=== PATIENT | male | born 1970 | race Caucasian/White ===

== ENCOUNTER 2023-04-13 00:21 | Emergency (ER) | payer BC, SELFPAY ==
[2023-04-13 00:41] VITALS: BP 141/84; PULSE 94; RESP 16; TEMP 36.9; O2SAT 97; BMI 28.0
--- NOTE | 2023-04-13 01:04 | PC.NURSE ---
Patient complaining of not being able to hear out of his right ear. Patient states that a on Monday after his shower he was cleaning his ear with a q-tip and he felt the wax get pushed back and lock up his ear like a bank vault. Patient states that since Monday he has felt as if his head is in a fish bowl. Upon inspection a wall of ear wax was noted within his ear.
--- NOTE | 2023-04-13 01:52 | ED_ITS ---
HPI - General Adult General Chief complaint: Ear Problems Stated complaint: ear clogged for a few days Time Seen by Provider: 04/13/23 01:15 Source: patient, RN notes reviewed and old records reviewed Mode of arrival: ambulatory Limitations: no limitations History of Present Illness HPI narrative: 52-year-old male presents for evaluation of right ear pain. Patient reports that on Monday he was trying to clean out his ear with a Q-tip He reports that as soon as he inserted a Q-tip into his right ear ?I felt the earwax get pushed back in there. ? He reports decreased hearing and some mild discomfort in the right ear ever since He has tried using Visine eyedrops to help soften it without any improvement No other complaints or concerns at this time Related Data Allergies Allergy/AdvReac Type Severity Reaction Status Date / Time No Known Allergies Allergy Verified 04/13/23 00:47 Review of Systems Constitutional: Constitutional: Denies headache(s) ENT: Reports otalgia and Denies headache(s) Neurologic: Denies headache(s) Physical Exam ED Vital Signs: Vital Signs - 24 hr 04/13/23 00:41 Temperature 98.5 F Pulse Rate 94 Respiratory Rate 16 Blood Pressure 141/84 H Pulse Oximetry 97 Oxygen Delivery Method Room Air BMI result Body Mass Index 28.0 HENMT Other: Cerumen impaction of the right external ear canal obscuring the right tympanic membrane completely Ears: external ears normal and TM normal on the left Medical Decision Making Medical Decision Making [facility] Narrative: Patient had an obvious right cerumen impaction. A mixture of half warm water and half hydrogen peroxide was used to irrigate the ear approximately 200 cc of the solution was used. A curette was then used to remove to large clumps of cerumen from the right ear canal. Upon revisualization using otoscope, the right tympanic membrane was faintly erythematous but intact without perforation. Patient reports significant improvement in his hearing immediately after the procedure. He had mild dizziness that subsided within 2-3 minutes postprocedure Differential Diagnosis Differential Diagnoses: The differential diagnosis associated with the presentation includes Cerumen impaction Otitis media Otitis externa Foreign body in ear Discharge Plan Discharge Clinical Impression: Cerumen impaction Patient Disposition: Home, Self-Care Instructions: Earache (ED) Additional Instructions: You had a buildup of earwax/cerumen in your right ear We cleaned it out with a mixture of warm water and hydrogen peroxide You should not stick anything in your ear You may occasionally use [id number] Debrox ear drops to help soften the earwax and prevent buildup in the future
[2023-04-13 02:53] VITALS: BP 137/93; PULSE 75; RESP 16; O2SAT 96
== END 2023-04-13 02:56 | disposition home or self-care (01) ==
PROVIDERS: Emergency Provider Emergency Medicine Emergency Medical Services
DX: H61.21 Impacted cerumen, right ear (principal)
CPT/HCPCS: 69209; 99282; 99284

== ENCOUNTER 2023-09-24 11:07 | Emergency (ER) | payer BC, SELFPAY ==
--- NOTE | ~2023-09-24 | XR_ITS ---
EXAMINATION: XR chest 2V CLINICAL INFORMATION: Reason for Exam cough, fever COMPARISON: No prior chest x-ray available in our system for comparison at the time of this dictation. TECHNIQUE: XR chest 2V, 2 Views Lungs and Swetha: Both lungs are clear. Pleura: Normal. Costophrenic angles are sharp. No pneumothorax. Heart: The heart is normal in size. Mediastinum: The mediastinum is within normal limits.. Bones: Skeletal structures included are normal for patient's age. XR/XR chest 2V IMPRESSION: No radiographic evidence of acute cardiopulmonary disease.
[2023-09-24 11:18] VITALS: BP 129/82; PULSE 107; RESP 16; TEMP 39.2; O2SAT 95; BMI 28.1
--- NOTE | 2023-09-24 11:18 | ED_ITS ---
HPI - URI/Sore Throat General Chief Complaint: Upper Respiratory Symptoms Stated Complaint: Congestion, headache, body aches Time Seen by Provider: 09/24/23 12:09 Source: patient Mode of arrival: ambulatory Limitations: no limitations History of Present Illness HPI Narrative: Patient is a 53 year old male who presents to emergency department for evaluation of tactile fever, headache, cough, nasal congestion x 2 days. Reports that he would like a prescription for afrin to treat his nasal congestion. Has not tried OTC cold medications. States I always come here to know what to take because I'm am amxious person . Denies lightheadedness, vision changes, neck pain, neck stiffness, chest pain, shortness of breath, difficulty breathing, nausea, vomiting, abdominal pain, numbness or tingling extremities. Related Data Previous Rx's Medication Instructions Recorded amoxicillin 875 mg-potassium 1 tab PO BID #14 tabs 09/24/23 clavulanate 125 mg tablet oxymetazoline 0.05 % nasal mist 2 spray intranasal Q12H PRN nasal 09/24/23 (Afrin No Drip (oxymetazoline)) congestion 3 days #15 mL Allergies Allergy/AdvReac Type Severity Reaction Status Date / Time No Known Allergies Allergy Verified 09/24/23 11:22 Review of Systems Review of Systems: Yes all other systems are reviewed and are negative PMFSH Past Medical History Attestation statement: The following information was validated with the patient. Source: old records reviewed Onset Date is defined in the Problem List Problems that require an onset date and time if occurred within 24 hrs of arrival to the ED Aortic Dissection and Rupture; Neurologic impairment; Cardiopulmonary Arrest; Endotracheal Intubation; Insertion or Replacement of Mechanical Circulatory Assist Device Social History Social History Smoked in Last 30 Days: No Use of substances other than those prescribed or required for medical reasons: No Advance Directives: No Advance Directives Information Provided: Yes Physical Exam Vital Signs: Vital Signs: Last Vital Signs Temp 99.8 F 09/24/23 13:00 Pulse 109 H 09/24/23 13:00 Resp 16 09/24/23 13:00 BP 110/68 09/24/23 13:00 Pulse Ox 94 09/24/23 13:01 O2 Del Method Room Air 09/24/23 13:01 BMI result Body Mass Index 28.1 Appearance: Alert.?Oriented to person, place and time. No acute distress.?Normal affect. Eyes: Pupils equal, round and reactive to light.? ENT: TM normal bilaterally. Pharynx normal.?? Neck: Normal inspection.? Neck supple.??No cervical adenopathy CVS: Heart sounds normal. Normal heart rate and rhythm.? Pulses normal.?? Respiratory: No respiratory distress.? Lung sounds clear to auscultation bilaterally?? Abdomen: Soft and non-tender. Normoactive bowel sounds. Skin: Skin warm and dry.? Normal skin color.? ? Extremities: No lower extremity edema.? Neuro: Moves all extremities spontaneously. Sensation intact bilaterally. No motor deficits. Ambulates with normal steady gait. Medications Administered Discontinued Medications Generic Name Dose Route Start Last Admin Trade Name Shaquille PRN Reason Stop Dose Admin Acetaminophen 975 mg 09/24/23 11:20 09/24/23 11:29 Acetaminophen 325 Mg Tablet PO 09/24/23 11:21 975 mg ONCE ONE Administration Ibuprofen 600 mg 09/24/23 12:12 09/24/23 12:16 Ibuprofen 600 Mg Tablet PO 09/24/23 12:13 600 mg ONCE ONE Administration Medical Decision Making Medical Decision Making [facility] Narrative: Patient is a 53-year-old male presenting for evaluation of upper respiratory symptoms. COVID-19 and influenza testing is negative, however given the symptom onset I did advise him that he should consider repeat testing in a few days if he is still symptomatic. At this time history and physical exam not consistent with ACS/PE. CXR Reveals no acute cardiopulmonary abnormality, no evidence of pneumonia. Well-appearing, nontoxic, or tachypnea/hypoxia. Presented mildly tachycardic and febrile, received Tylenol and motrin which relieved fever. Speaking clear full sentences, ambulatory with steady gait. Given duration of symptoms and fever will treat for presumed bacterial sinusitis, antibiotics sent to pharmacy. Discussed conservative treatment including rest, hydration, Tylenol/ibuprofen as needed for fever and body aches, saline nasal spray, humidifier, [id number] cold medication. Advised to follow-up with primary care provider as needed, discussed reasons to return back to the emergency department. All questions were answered. Patient discharged home in stable condition. Provided with a return to work/school note. Differential Diagnosis Differential Diagnoses: The differential diagnosis associated with the presentation includes ( See narrative above) Admission/Observation Consideration of admission/observation: Escalation of care including admission/observation considered ( see narrative above) Lab Data MDM Lab Attestation statement: I reviewed the patient's lab results. ( see narrative above) Labs: Lab Results 09/24/23 Range/Units 11:24 COVID-19 (DEYVI) Negative (Negative) COVID-19 Clin Com See Note Influenza Type A (MERT) Negative (Negative) Influenza Type B (MERT) Negative (Negative) Influenza A & B Note See Note Independent Interpretation I performed an independent interpretation of an: Plain X-Ray (I personally interpreted x-ray and agree with radiologist impression) Radiology Impression Discussion of test interpretation with radiology: I have reviewed the radiologist's reading. Radiologist Impression: XR/XR chest 2V IMPRESSION: No radiographic evidence of acute cardiopulmonary disease. Prescription Management I considered prescription management with: Pain Medication ( acetaminophen/ibuprofen) and Antibiotic Discharge Plan Discharge Clinical Impression: Sinusitis Patient Disposition: Home, Self-Care Instructions: Sinusitis (ED) Additional Instructions: Today your tests for COVID and the flu are negative. However given your symptoms just began, I would consider repeating these tests in a couple of days especially if you continued to have symptoms. Be sure to rest, stay well hydrated drinking plenty of fluids, eat small frequent meals. Complete the entire course of antibiotics as prescribed. You can take ibuprofen 200 mg, 3 tablets (600mg) every 6-8 hours as needed for p ain, in addition to Tylenol 500 mg, 2 tablets (1,000mg) every 4-6 hours as needed for pain, but not to exceed 3 doses daily (3,000mg).? [id number] cold medications may be helpful as well for symptoms. Saline nasal spray, humidifier may be helpful for nasal congestion. I have sent a prescription for Afrin to your pharmacy, do not use this medication for more than 3-5 days. You may return to the emergency department with any new or worsening symptoms or concerns. Follow-up with your primary care provider as needed. Should remain out of school/ work until symptoms have resolved and have been without a fever for 24 hours without the use of Tylenol or ibuprofen. Prescriptions: New Afrin No Drip(oxymetazolin) 0.05 % mist 2 spray intranasal Q12H PRN (Reason: nasal congestion) 3 Days Qty: 15 0RF amoxicillin-pot clavulanate 875-125 mg tablet 1 tab PO BID Qty: 14 0RF Referrals: Bette Morgan MD [Primary Care Provider] -
[2023-09-24] MEDS: Acetaminophen 325 MG TABLET 975 MG PO (11:29)
[2023-09-24 11:42] LABS: COVID-19 Test Negative (Negative); IDNOW Serial# 152EDE1D
[2023-09-24 12:02] LABS: IDNOW Serial# 9DB6401D; Influenza A Negative (Negative); Influenza B2 Negative (Negative)
[2023-09-24 12:12] VITALS: TEMP 39.3
[2023-09-24] MEDS: Ibuprofen 600 MG TABLET PO (12:16)
--- NOTE | 2023-09-24 12:32 | PC.NURSE ---
pt returned from xray at this time. resting comfortably in no apparent distress. call nettles placed within reach.
[2023-09-24 13:00] VITALS: BP 110/68; PULSE 109; RESP 16; TEMP 37.7; O2SAT 94
[2023-09-24 13:01] VITALS: O2SAT 94
== END 2023-09-24 13:46 | disposition home or self-care (01) ==
PROVIDERS: Nurse Practitioner Family; Emergency Provider Emergency Medicine; PCP Internal Medicine
DX: J32.9 Chronic sinusitis, unspecified (principal); J02.9 Acute pharyngitis, unspecified; M79.10 Myalgia, unspecified site; R51.9 Headache, unspecified; R05.9 Cough, unspecified; R09.81 Nasal congestion; Z11.52 Encounter for screening for COVID-19
CPT/HCPCS: 71046; 87502; 87635; 99283; 99284